=== PATIENT | male | born 1955 | race Caucasian/White ===

== ENCOUNTER → 2018-03-08 | Outpatient (CLI) | payer MEDICARE, OTHER ==
[~2018-03-08] MED LIST: AMLODIPINE BESY10 MG PO; ATORVASTATIN CA40 MG PO; ATROVENT15 ML INH; CLOPIDOGREL75 MG PO; FEOSOL325 MG PO; HYDROCHLOROTH12.5 M1 PO; LEVETIRACETAM1000 MG PO; LEVETIRACETAM500 MG PO; METOPROLOL SUCC50 MG PO; MOVANTIK PO; NORCO 10-325 T1 EACH PO; NORTRIPTYLINE H50 MG PO; ORTHO D PO; PREDNISONE10 MG PO; PROTONIX40 MG PO; SENOKOT8.6 MG PO; ULTRAM 50MG50 MG PO; [UNRECOGNIZED DRUG - OTHER]; [UNRECOGNIZED DRUG - OTHER] PO
[2018-03-08 11:56] LABS: BLOOD UREA NITROGEN 20 mg/dL (7-26); BUN/CREATININE RATIO 23 (6-25); CREATININE, SERUM 0.86 mg/dL (0.72-1.25); EST GLOMERULAR FILTRATION RATE > 60 ML/MIN (60-)
--- NOTE | 2018-03-08 13:44 | Diagnostic Imaging Report ---
EXAM: CT Chest WITH contrast INDICATION: Chronic cough, malaise, fatigue; query right lower lobe nodular opacity on prior chest radiograph from 01/2018 per chart although no images are available for review. COMPARISON: None TECHNIQUE: Chest was scanned utilizing a multidetector helical scanner from the lung apex through the level of the adrenal glands without administration of IV contrast. Coronal and sagittal reformations were obtained. Routine protocol was performed. IV CONTRAST: 100 mL of Isovue 370 RADIATION DOSE: Total DLP: 511.7 mGy*cm COMPLICATIONS: None FINDINGS: LINES/ TUBES: None. LUNGS AND AIRWAYS: The very inferior aspect of the bilateral lung bases are excluded from the field of view. The central airways are patent. There are mild patchy groundglass opacities in the right lower lobe on series 3, image 99. There are mild patchy opacities within the lingula. Scattered atelectatic changes. The central airways are patent. PLEURA: The pleural spaces are clear. HEART AND MEDIASTINUM: The thyroid gland is normal. Mildly enlarged 1.1 cm right paratracheal lymph node. There is a 5 mm nonspecific right pericardiac lymph node. The main pulmonary artery is enlarged measuring up to 3.2 cm. There are extensive coronary atherosclerotic calcifications. Multiple coronary stents. Scattered atherosclerotic calcifications of the thoracic aorta and branch vessels. UPPER ABDOMEN: Limited non-contrast views of the upper abdomen were performed. There is a gastric laparoscopic band. There is a small hiatal hernia. Splenic calcified granuloma. The visualized liver is unremarkable. BONES/SOFT TISSUES: No acute bony findings. No suspicious lytic or blastic lesion. IMPRESSION: No specific evidence of malignancy in the thorax. Mild patchy ground glass opacities in the right lower lobe, which could represent patchy atelectasis or may be infectious/inflammatory. Mildly enlarged 1.1 cm right paratracheal lymph node, a non-specific finding. Signed by: Dr. Richard Guzmán MD on 03/08/2018 1:41 PM
== END ==
LOC: CT 10:55
PROVIDERS: ATTEND Family Medicine
DX: R05 Cough (principal); R53.81 Other malaise
CPT/HCPCS: 36415; 71260; 82565; 84520

== ENCOUNTER 2021-05-01 17:32 | Emergency (ER) | payer MEDICARE, OTHER ==
[~2021-05-01] VITALS: Ht 177.8 cm; Wt 98.4 kg
[2021-05-01] MEDS ORDERED: ASPIRIN 81 MG CHEW TAB PO STA (18:10)
[2021-05-01 18:42] LABS: BASOPHILS # (AUTO) 0.1 (0.0-0.1); BASOPHILS % 0.5 % (0.0-1.0); EOSINOPHILS # (AUTO) 0.1 (0.0-0.4); EOSINOPHILS % 0.5 % (0.0-6.0); HEMATOCRIT 47.8 % (38.2-49.6); HEMOGLOBIN 16.3 g/dL (14.0-18.0); LYMPHOCYTES # (AUTO) 2.9 (1.0-3.2); LYMPHOCYTES % 26.2 % (18.0-39.1); MEAN CORPUSCULAR HEMOGLOBIN 31.2 pg (28-32); MEAN CORPUSCULAR HGB CONC 34.1 g/dL (31-35); MEAN CORPUSCULAR VOLUME 91.4 fL (81-99); MONOCYTES # (AUTO) 0.6 (0.2-0.8); MONOCYTES % 5.8 % (4.4-11.3); NEUTROPHILS # (AUTO) 7.3 (2.1-6.9); NEUTROPHILS % 66.5 % (38.7-80.0); PLATELET COUNT 233 x10e3/uL (140-360); RED BLOOD COUNT 5.23 x10e6/uL (4.3-5.7); RED CELL DISTRIBUTION WIDTH 13.2 % (11.7-14.4)
[2021-05-01 18:56] LABS: INR 0.91; PROTHROMBIN TIME 13.1 seconds (11.9-14.5)
[2021-05-01 19:08] LABS: ALBUMIN 4.5 g/dL (3.5-5.0); ALBUMIN/GLOBULIN RATIO 1.6 (0.8-2.0); ANION GAP 18.4 mmol/L (8-16); CALCIUM 10.5 mg/dL (8.4-10.2); CREATININE, SERUM 0.97 mg/dL (0.72-1.25); POTASSIUM 3.4 mmol/L (3.5-5.1)
[2021-05-01 19:15] LABS: CREATINE KINASE MB 1.1 ng/mL (0-5.0)
[2021-05-01] MEDS ORDERED: LABETALOL HCL 5 MG/ML 20ML VIAL IV STA (20:01)
[2021-05-01] MEDS ORDERED: DEXAMETHASONE SOD PHOS 10 MG/1 ML VIAL IV ONE (20:15)
[2021-05-01] MEDS ORDERED: LEVETIRACETAM 500MG/5ML VIAL 1,000 MG in SODIUM CHLORIDE 0.9% 100 ML IV ONE (20:15)
== END 2021-05-01 22:02 | disposition other institution (70) ==
LOC: ER 17:45
DX: I60.9 Nontraumatic subarachnoid hemorrhage, unspecified (principal); I61.8 Other nontraumatic intracerebral hemorrhage; R47.01 Aphasia; M62.81 Muscle weakness (generalized); Z79.01 Long term (current) use of anticoagulants; Z95.5 Presence of coronary angioplasty implant and graft; Z98.84 Bariatric surgery status
CPT/HCPCS: 36415; 70450; 71045; 80053; 82550; 82553; 83880; 84484; 85025; 85610; 85730; 93005; 99284; J1100; J7050; U0002